=== PATIENT | female | born 1975 | race Caucasian/White ===

== ENCOUNTER 2017-01-09 17:11 | Emergency (ER) | payer OTHER ==
--- NOTE | ~2017-01-09 | CR127 ---
[facility] A Service of [facility] RADIOLOGY TEXT RESULTS PATIENT: YENI SZYMANSKI LOCATION: CFTX : 77 UNIT #: [id number] AGE: [address]: Keila Boateng APRN SEX: F ORDER DR: [id number] [facility] [address] [facility]. [place], [place] [address] [id number] MR#: [id number] #: [id number] NAME: YENI SZYMANSKI : 1975 SEX: F STUDY DATE/TIME: 01/09/2017 17:58 UNIT: [facility] ROOM: STUDY DESCRIPTION: CR Foot Complete Min 3 View Rt Attending Physician: Keila Boateng A.P.R.N. Ordering Physician: Reed Ruelas M.D. Primary Care Physician: Tash Luu M.D. MEDICAL IMAGING REPORT This report is preliminary unless electronic signature is present EXAM Right foot 3 views HISTORY Pain since yesterday. No injury. FINDINGS 3 views of the right foot demonstrate nondisplaced incomplete transverse fracture through the lateral margin of the proximal fifth metatarsal 2.5 cm from its proximal tip. No fracture angulation or intraarticular fracture extension. Remainder of the foot is negative. No additional fracture. Dictated by... Eamon Parham M.D. THIS IS AN ELECTRONICALLY VERIFIED REPORT Eamon Parham M.D. at 01/10/2017 12:54 PM DFL/michelle TD: 01/10/2017 08:11 JOB #: [id number] MEDICAL IMAGING REPORT Page 1 of 1 COPY
[~2017-01-09 17:11] MED LIST: BYSTOLIC PO; FLEXERIL PO; KETOPROFEN PO; SYNTHROID PO; VICODIN 5/500 T1 TAB PO; VITAMIN D PO; [UNRECOGNIZED DRUG - OTHER] SUBQ
== END 2017-01-09 19:30 | disposition home or self-care (01) ==
LOC: CFTX 17:11 → CED 17:11 → CFTX 17:43
DX: S92.354A Nondisplaced fracture of fifth metatarsal bone, right foot, initial encounter for closed fracture (principal); F17.210 Nicotine dependence, cigarettes, uncomplicated; W01.0XXA Fall on same level from slipping, tripping and stumbling without subsequent striking against object, initial encounter; Y92.009 Unspecified place in unspecified non-institutional (private) residence as the place of occurrence of the external cause
CPT/HCPCS: 29540; 73630; 99283